=== PATIENT | female | born 1975 | race Caucasian/White ===

== ENCOUNTER 2025-05-13 20:20 | Emergency (ER) | payer OTHER, SELFPAY ==
[2025-05-13 20:23] VITALS: BP 163/104; PULSE 93; TEMP 36.7; O2SAT 98; BMI 29.2
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
[2025-05-13 20:57] VITALS: BP 152/93; PULSE 83; O2SAT 98
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
--- OUTSIDE RECORDS SUMMARY | 2025-05-13 20:57 | XMS_ITS | Clinical Summary ---
Author Organization [facility] Address [address] [facility] [place] [address] Care Team Providers Care Internal Control Specialist Name Role Phone Paige Guy MD Unavailable Source Comments The following information is NOT included in Care Everywhere downloads:Psychiatric notes, ECG results, Cardiac Rehab notes, Pulmonary Function notes, data from SmartForms (includes but not limited toPregnancy data,audiograms, eye exams, pre-surgical evaluation notes, well-child exam data).[facility] Allergies Active AllergyReactionsCriticalityNoted BycnEfixzzmjIsrftryJvvfdtmm36/11/2022 SahhsirqfpwTsqrk38/11/2022 Medications MedicationSigDispense QuantityRefillsLast FilledStart DateEnd DateStatus omeprazole (PRILOSEC) 40 MG capsule Take 40 mg by mouth daily.Active busPIRone (BUSPAR) 10 MG tablet Take 10 mg by mouth 2 times daily.Active Venlafaxine HCl (EFFEXOR ORAL) Take 25 mg by mouth.Active Ondansetron (ZOFRAN ODT ORAL) Take by mouth.Active metoclopramide (REGLAN) 10 MG tablet Take 1 Tablet by mouth every 6 hours as needed for Nausea. 20 Tablet 06/11/2022ctive sucralfate (CARAFATE) 1 GM/10ML oral suspension Take 10 mL by mouth 4 times daily for 7 days. As needed for abdominal pain 280 mL 06/11/2022ctive Active Problems No known active problems Immunizations ImmunizationAdministration DatesNext DueTdap (AVM=998)08/14/2022 Social History Tobacco UseTypesPacks/DayYears UsedDateSmoking Tobacco: Never Assessed CommentsUnknownSex and Gender InformationValueDate RecordedSex Assigned at Not on fileLegal MqoTptlwa30/11/2022 11:13 PM ESTGender IdentityNot on file Sexual OrientationNot on file Last Filed Vital Signs Vital SignReadingTime TakenCommentsBlood Wdzapmtc896/9206/10/2022 11:28 PM EST Gkgtp10090/11/2022 11:28 PM NLZBamsdjybknx91 ??C (98.6 ??F)06/10/2022 11:28 PM ESTRespiratory Bxyo715208/11/2021 11:28 PM ESTOxygen Tyzuulfbtr52%06/10/2022 11:28 PM ESTInhaled Oxygen Concentration--Dhuncf17.1 kg (159 lb)06/10/2022 11:28 PM ESTHeight--Body Mass Index-- Plan of Treatment Health MaintenanceDue DateLast HurmKqyjukrsOoqaraeokhl1976Hepatitis C Fyifjpnr50/21/1994Hepatitis A (HAV) Vaccine (optional start 19+ years)1995 Hepatitis B (HBV) Vaccine (1 of 3 - 19+ 3-dose series)1995Pap Smear 04/20/19970568Shzqnroajbh68/21/2016CRC Eslpcviwr40/21/0663Mrzyjbabkfe88/21/2021 Cologuard (Stool DNA)2021FIT2021OVID-19 Vaccine ( - 2024- season)2025Influenza Vaccine (#1)2025Shingles (RZV) Vaccine (1 of 2) 2026Tetanus (Td or Tdap) Lfkmqtm44/HIV TestCompleted 06/10/2022Tdap EutzagxYseaamazo36/14/2023neumococcal Vaccine(s)Aged OutNo longer eligible based on patient's age to complete this topic Procedures Procedure NamePriorityDate/TimeAssociated DiagnosisCommentsHIV1 HIV2 AGAB SCRN STAT108/11/2021 11:46 PM EST from Last 3 Months or Most Recently Relevant to Health Maintenance Results * HIV1 HIV2 AGAB SCRN (06/10/2022 11:46 PM EST)ComponentValueRef RangeTest MethodAnalysis TimePerformed AtPathologist SignatureHIV 1/2 Ag/AbNonreactive Isdsdjrxcji84/12/2022 9:02 AM ESTS[facility] PATHOLOG[facility] LABORATORYSpecimen (Source) Anatomical Location / LateralityCollection Method / VolumeCollection Time Received TimeBloodBLOOD SPECIMEN / Iozqrbt3806/10/2022 11:46 PM EST06/10/2022 11:57 PM EST Narrative [facility] - 06/11/2022 9:02 AM EST The specimen was non-reactive for HIV-1 and HIV-2 antibodies, and p24 antigen. Based on this non-reactive screen result, further reflexive testing was not indicated and was, therefore, not performed. Note: The performance of this assay has not been clinically validated in patients less than 2 yearsold. Authorizing ProviderResult TypeResult StatusAndrew Zia DOEC HIV/HEP/SYPH TESTINGFinal ResultPerforming OrganizationAddressCity/State/ZIP CodePhone Number [facility] [address] [place] [address] from Last 3 Months or Most Recently Relevant to Health Maintenance Insurance Care Teams Team MemberRelationshipSpecialty[place] [address] [facility]. [place] [id number] [facility]06/10/22
--- OUTSIDE RECORDS SUMMARY | 2025-05-13 20:57 | XMS_ITS | Clinical Summary ---
Author Organization [facility] Address [address] [place] [address] Phone Care Team Providers Care Tour Manager Name Role Phone Paige Guy MD Primary Care Provider [phone] Allergies Active AllergyReactionsCriticalityNoted DateCommentsCodeineNausea/vomiting 07/13/20249353TqwfpqhrqxsVwvwu21/13/2025PrednisoneNausea/bjhlzrku80/13/2025 Medications MedicationSigDispense QuantityRefillsLast FilledStart DateEnd DateStatus omeprazole (PriLOSEC) [address] capsule Take 1 capsule (40 mg) by mouth. Do not crush or chew.Active busPIRone (Buspar) 10 mg tablet Take 1 tablet (10 mg) by mouth 3 times a day.Active Social History Tobacco UseTypesPacks/DayYears UsedDateSmoking Tobacco: NeverSmokeless Tobacco: Never Tobacco Cessation:Counseling Given: Not Answered Alcohol UseStandard Drinks/WeekCommentsNever0 (1 standard drink = 0.6 oz pure alcohol)CommentsUnknownSex and Gender InformationValueDate RecordedSex Assigned at BirthNot on fileLegal IuyUopdip74/30/2023 2:07 AM EDTGender Identity Not on fileSexual OrientationNot on file Last Filed Vital Signs Vital SignReadingTime TakenCommentsBlood Gmsfhvfg264/8707/14/2024 1:00 AM EST Nzcfd717907/14/2024 1:00 AM UYVAywvvleczhc95.2 ??C (97.2 ??F)07/13/2024 9:48 PM ESTRespiratory Elje760207/14/2024 1:00 AM ESTOxygen Ocryblafaz27%07/14/2024 1:00 AM ESTInhaled Oxygen Concentration--Itavrg22.8 kg (165 lb)07/13/2024 9:48 PM EST Fcxego658 cm (5' 2.99 )07/13/2024 9:48 PM ESTBody Mass Index29.24007/13/2024 9:48 PM EST Plan of Treatment Health MaintenanceDue DateLast DoneCommentsCT Hblgdzttalpv1976Colonoscopy 1976FIT1976Lipid Panel1976 9233Vqgqpzqheeawo1976Yearly Adult Sxuwsiwl1976MMR Vaccines (1 of 1 - Standard series)1977Hepatitis C Srevdwwcg75/21/1994Hepatitis B Vaccines (1 of 3 - 19+ 3-dose series)1995 Cervical Cancer Fxfvnujdv81/21/1997HPV/Tlicbo6304/20/1997Pap Smear1997 Pgyntpaqz76/21/2016Influenza Vaccine (#1)5COVID-19 Vaccine (1 - season)2025Zoster Vaccines (1 of 2)6Colorectal Cancer Screening 12/14/2026FIT-DNA (Cologuard)/4Diabetes Opgeoewpr22/13/2028 07/13/2024DTaP/Tdap/Td Vaccines (2 - Td or Tdap)/HIV PhgmkdwbiYfnnpubrw97/11/2022HIB VaccinesAged OutNo longer eligible based on patient's age to complete this topicHPV VaccinesAged OutNo longer eligible based on patient's age to complete this topicHepatitis A VaccinesAged OutNo longer eligible based on patient's age to complete this topicIPV VaccinesAged OutNo longer eligible based on patient's age to complete this topicMeningococcal VaccineAged OutNo longer eligible based on patient's age to complete this topic Pneumococcal Vaccine: Pediatrics and At-Risk Adult PatientsAged OutNo longer eligible based on patient's age to complete this topicRotavirus VaccinesAged Out No longer eligible based on patient's age to complete this topic Procedures Procedure NamePriorityDate/TimeAssociated DiagnosisCommentsCOMPREHENSIVE METABOLIC VACKVALCV05/13/2025 10:21 PM EST from Last 3 Months or Most Recently Relevant to Health Maintenance Results * (ABNORMAL) Comprehensive Metabolic Panel (07/13/2024 10:21 PM EST)Component ValueRef RangeTest MethodAnalysis TimePerformed AtPathologist SignatureGlucose 123(H)74 - 99 mg/dL LAB CHEMISTRY METHOD 07/13/2024 10:47 PM [facility] YYXXmbyfh597(L)136 - 145 mmol/L LAB CHEMISTRY METHOD 07/13/2024 10:47 PM [facility] LABPotassium3.93.5 - 5.3 mmol/L LAB CHEMISTRY METHOD 07/13/2024 10:47 PM [facility] XIIGwbluoso17672 - 107 mmol/L LAB CHEMISTRY METHOD 07/13/2024 10:47 PM [facility] PUHQqvuqaltniy01(L)21 - 32 mmol/L LAB CHEMISTRY METHOD 07/13/2024 10:47 PM [facility] LABAnion Zvl9430 - 20 mmol/L LAB CHEMISTRY METHOD 07/13/2024 10:47 PM [facility] LABUrea Qieyklfl20 - 23 mg/dL LAB CHEMISTRY METHOD 07/13/2024 10:47 PM [facility] LABCreatinine1.010.50 - 1.05 mg/dL LAB CHEMISTRY METHOD 07/13/2024 10:47 PM [facility] MRGnDJZ69>60 mL/min/1.73m*2 LAB CHEMISTRY METHOD 07/13/2024 10:47 PM [facility] LABComment: Calculations of estimated GFR are performed using the 2020 CKD-EPI Study Refit equation without therace variable for the IDMS-Traceable creatinine methods. https://jasn.asnjournals.org/content/early//ASN.4929412683 Calcium9.28.6 - 10.3 mg/dL LAB CHEMISTRY METHOD 07/13/2024 10:47 PM [facility] LABAlbumin4.33.4 - 5.0 g/dL LAB CHEMISTRY METHOD 07/13/2024 10:47 PM [facility] LABAlkaline Bnkioaxkort4897 - 110 U/L LAB CHEMISTRY METHOD 07/13/2024 10:47 PM [facility] LABTotal Protein7.76.4 - 8.2 g/dL LAB CHEMISTRY METHOD 07/13/2024 10:47 PM [facility] EHVFUX582 - 39 U/L LAB CHEMISTRY METHOD 07/13/2024 10:47 PM [facility] LABBilirubin, Total0.40.0 - 1.2 mg/dL LAB CHEMISTRY METHOD 07/13/2024 10:47 PM [facility] YBOVYA476 - 45 U/L LAB CHEMISTRY METHOD 07/13/2024 10:47 PM [facility] LABComment:Patients treated with Sulfasalazine may generate falsely decreased results for ALT.Specimen (Source) Anatomical Location / LateralityCollection Method / VolumeCollection Time Received TimeBloodVenous blood specimen / UnknownVenipuncture / Unknown 07/13/2024 10:21 PM EST07/13/2024 10:23 PM EST Narrative Authorizing ProviderResult TypeResult StatusPatrick W David DOLAB BLOOD ORDERABLESFinal ResultPerforming OrganizationAddressCity/State/ZIP CodePhone Number [facility] [address] [place] [address] from Last 3 Months or Most Recently Relevant to Health Maintenance Insurance * Guarantor: Emanuel Hollis TypeRelation to PatientDate of BirthPhone Billing AddressPersonal/QczuqnBsgs1975 [id number] [place] [phone] Care Teams Team MemberRelationshipSpecialty[place] [address] [place] [address] [facility] - General07/13/24
[2025-05-13] MEDS: KETOROLAC TROMETHAMINE 30 MG/ML VIAL IM (20:59)
--- NOTE | 2025-05-13 22:12 | PC.NURSE ---
i gave this patient verbal and written discharge orders along with 2 e-scribes and this patient voices yes to understanding these. at time of discharge this patient voices no concerns, needs and shows no signs of distress
== END 2025-05-13 22:11 | disposition home or self-care (01) ==
PROVIDERS: Emergency Provider Emergency Medicine
DX: S39.012A Strain of muscle, fascia and tendon of lower back, initial encounter (principal); V49.49XA Driver injured in collision with other motor vehicles in traffic accident, initial encounter; Y93.89 Activity, other specified; Y92.410 Unspecified street and highway as the place of occurrence of the external cause
CPT/HCPCS: 72040; 72072; 72100; 96372; 99284; J1885